=== PATIENT | female | born 1975 | race Caucasian/White ===

== ENCOUNTER → 2017-09-24 12:25 | Outpatient (CLI) | payer OTHER ==
[~2017-09-24] VITALS: Ht 152.4 cm; Wt 77.6 kg
[~2017-09-24 12:25] MED LIST: FIORICET 50-321 EACH PO; FLONASE16 GM NS; GILTUSS TR TAB1 EACH PO; MOTRIN800 MG PO; SEPTRA DS TABLE1 TAB PO; TIZANIDINE HCL2 MG PO; TOBREX5 ML OP; VASOTEC2.5 MG; VASOTEC2.5 MG PO; ZANAFLEX4 M1 PO; ZYRTEC10 MG PO
== END | disposition home or self-care (01) ==
LOC: PPHC 12:25
DX: J06.9 Acute upper respiratory infection, unspecified (principal)

== ENCOUNTER → 2017-09-27 08:43 | Outpatient (CLI) | payer OTHER | END | disposition home or self-care (01) | LOC: LAB 08:43 | DX: I10 Essential (primary) hypertension (principal) ==

== ENCOUNTER → 2017-10-02 10:50 | Outpatient (CLI) | payer OTHER ==
[~2017-10-02] VITALS: Ht 152.4 cm; Wt 75.7 kg
[~2017-10-02 10:50] MED LIST changes: +IMODIUM A-D2 M2 PO; +PEPCID40 MG PO
== END | disposition home or self-care (01) ==
LOC: PPHC 10:50
DX: E78.1 Pure hyperglyceridemia (principal); E07.89 Other specified disorders of thyroid

== ENCOUNTER 2017-10-07 18:35 | Emergency (ER) | payer OTHER ==
[~2017-10-07] VITALS: Ht 160 cm; Wt 75.7 kg
[~2017-10-07 18:35] MED LIST changes: -IMODIUM A-D2 M2 PO; -PEPCID40 MG PO
[2017-10-08] MEDS ORDERED: PEPCID40 MG PO (03:16)
[2017-10-08] MEDS ORDERED: IMODIUM A-D2 M2 PO ×3 (03:16→03:21)
== END 2017-10-08 03:52 | disposition home or self-care (01) ==
LOC: ER 18:35
DX: K52.9 Noninfective gastroenteritis and colitis, unspecified (principal)

== ENCOUNTER 2017-10-09 10:39 | Outpatient (CLI) | payer OTHER ==
[~2017-10-09 10:39] MED LIST changes: +IMODIUM A-D2 M2 PO; +PEPCID40 MG PO
== END 2017-10-09 10:42 | disposition home or self-care (01) ==
LOC: SONOGRAMA 10:39
DX: E04.8 Other specified nontoxic goiter (principal)

== ENCOUNTER 2017-12-13 10:15 | Outpatient (CLI) | payer OTHER | END 2017-12-13 10:22 | disposition home or self-care (01) | LOC: LAB 10:15 | DX: R50.9 Fever, unspecified (principal) ==

== ENCOUNTER → 2017-12-13 | Outpatient (CLI) | payer OTHER | END | disposition home or self-care (01) | LOC: PPHC 08:39 | DX: Z76.0 Encounter for issue of repeat prescription (principal); B34.9 Viral infection, unspecified ==

== ENCOUNTER 2018-02-07 08:18 | Outpatient (CLI) | payer OTHER | END 2018-02-07 08:24 | disposition home or self-care (01) | LOC: LAB 08:18 | DX: E03.8 Other specified hypothyroidism (principal); E89.0 Postprocedural hypothyroidism ==

== ENCOUNTER 2018-03-18 08:07 | Outpatient (CLI) | payer OTHER | END 2018-03-18 08:10 | disposition home or self-care (01) | LOC: MAMO-SONO 08:07 | DX: Z12.31 Encounter for screening mammogram for malignant neoplasm of breast (principal) ==

== ENCOUNTER 2018-04-18 08:35 | Outpatient (CLI) | payer OTHER | END 2018-04-18 08:42 | disposition home or self-care (01) | LOC: LAB 08:35 | DX: E03.8 Other specified hypothyroidism (principal) ==

== ENCOUNTER 2018-07-25 08:58 | Outpatient (CLI) | payer OTHER | END 2018-07-25 09:07 | disposition home or self-care (01) | LOC: LAB 08:58 | DX: G62.89 Other specified polyneuropathies (principal); R20.2 Paresthesia of skin; E03.8 Other specified hypothyroidism; E11.9 Type 2 diabetes mellitus without complications ==

== ENCOUNTER 2018-10-08 12:07 | Outpatient (CLI) | payer OTHER | END 2018-10-08 20:41 | disposition home or self-care (01) | LOC: LAB 12:07 | DX: J11.1 Influenza due to unidentified influenza virus with other respiratory manifestations (principal); J06.9 Acute upper respiratory infection, unspecified ==

== ENCOUNTER 2018-10-17 09:15 | Outpatient (CLI) | payer OTHER | END 2018-10-17 09:46 | disposition home or self-care (01) | LOC: LAB 09:15 | DX: G43.009 Migraine without aura, not intractable, without status migrainosus (principal); R51 Headache ==

== ENCOUNTER 2018-12-17 07:24 | Outpatient (CLI) | payer OTHER | END 2018-12-17 07:44 | disposition home or self-care (01) | LOC: LAB 07:24 | DX: E03.8 Other specified hypothyroidism (principal); R51 Headache; Z51.81 Encounter for therapeutic drug level monitoring ==

== ENCOUNTER 2018-12-17 11:08 | Outpatient (CLI) | payer OTHER | END 2018-12-17 16:18 | disposition home or self-care (01) | LOC: MRI 11:08 | DX: R51 Headache (principal) | CPT/HCPCS: 70553 ==

== ENCOUNTER 2019-01-14 11:12 | Outpatient (CLI) | payer OTHER | END 2019-01-14 13:03 | disposition home or self-care (01) | LOC: SONOGRAMA 11:12 | DX: E04.8 Other specified nontoxic goiter (principal) ==

== ENCOUNTER 2019-05-12 10:30 | Outpatient (CLI) | payer OTHER | END 2019-05-12 10:35 | disposition home or self-care (01) | LOC: LAB 10:30 | DX: A49.3 Mycoplasma infection, unspecified site (principal) ==

== ENCOUNTER 2019-11-03 12:27 | Emergency (ER) | payer OTHER ==
[~2019-11-03] VITALS: Ht 162.6 cm; Wt 81.6 kg
[2019-11-03] MEDS ORDERED: LEVOTHYROXINE25 MCG PO (13:06)
== END 2019-11-03 14:10 | disposition home or self-care (01) ==
LOC: ER 12:27
DX: S61.240A Puncture wound with foreign body of right index finger without damage to nail, initial encounter (principal); W46.0XXA Contact with hypodermic needle, initial encounter; Y93.89 Activity, other specified; Y92.69 Other specified industrial and construction area as the place of occurrence of the external cause; Y99.8 Other external cause status

== ENCOUNTER 2019-11-05 14:19 | Outpatient (CLI) | payer OTHER ==
[~2019-11-05 14:19] MED LIST changes: +LEVOTHYROXINE25 MCG PO
== END 2019-11-05 14:23 | disposition home or self-care (01) ==
LOC: LAB 14:19
DX: J11.1 Influenza due to unidentified influenza virus with other respiratory manifestations (principal); J06.9 Acute upper respiratory infection, unspecified

== ENCOUNTER 2019-11-10 06:23 | Outpatient (CLI) | payer OTHER | END 2019-11-10 06:31 | disposition home or self-care (01) | LOC: LAB 06:23 | DX: J06.9 Acute upper respiratory infection, unspecified (principal) ==

== ENCOUNTER 2019-12-23 06:23 | Outpatient (CLI) | payer OTHER | END 2019-12-23 15:00 | disposition home or self-care (01) | LOC: LAB 06:23 | DX: R10.84 Generalized abdominal pain (principal); Z00.00 Encounter for general adult medical examination without abnormal findings; R42 Dizziness and giddiness; I10 Essential (primary) hypertension; E03.8 Other specified hypothyroidism; E55.9 Vitamin D deficiency, unspecified; E78.49 Other hyperlipidemia ==

== ENCOUNTER → 2020-07-28 06:23 | Outpatient (CLI) | payer OTHER | END | disposition home or self-care (01) | LOC: LAB 06:23 | PROVIDERS: ATTEND Internal Medicine Endocrinology, Diabetes & Metabolism | DX: E06.3 Autoimmune thyroiditis (principal) ==

== ENCOUNTER 2020-08-14 15:03 | Outpatient (CLI) | payer OTHER | END 2020-08-14 15:10 | disposition home or self-care (01) | LOC: SONOGRAMA 15:03 | PROVIDERS: ATTEND Internal Medicine Endocrinology, Diabetes & Metabolism | DX: E04.2 Nontoxic multinodular goiter (principal) ==

== ENCOUNTER 2020-09-05 06:04 | Outpatient (CLI) | payer OTHER | END 2020-09-05 06:59 | disposition home or self-care (01) | LOC: LAB 06:04 | DX: E03.8 Other specified hypothyroidism (principal); E66.3 Overweight; E07.89 Other specified disorders of thyroid; I10 Essential (primary) hypertension; R07.89 Other chest pain; E78.49 Other hyperlipidemia; D64.89 Other specified anemias; N39.0 Urinary tract infection, site not specified; R10.84 Generalized abdominal pain; E11.9 Type 2 diabetes mellitus without complications ==

== ENCOUNTER 2020-09-05 07:29 | Outpatient (CLI) | payer OTHER | END 2020-09-05 07:49 | disposition home or self-care (01) | LOC: NUCLEAR 07:29 | PROVIDERS: ATTEND Internal Medicine | DX: I20.8 Other forms of angina pectoris (principal) | CPT/HCPCS: 93306; 78452; 93017; A9500 ==

== ENCOUNTER → 2020-11-14 06:11 | Outpatient (CLI) | payer OTHER | END | disposition home or self-care (01) | LOC: LAB 11-13 12:29 | PROVIDERS: ATTEND Internal Medicine | DX: R07.89 Other chest pain (principal); E66.3 Overweight; E78.49 Other hyperlipidemia; E07.89 Other specified disorders of thyroid; I10 Essential (primary) hypertension ==

== ENCOUNTER 2020-11-30 07:10 | Outpatient (CLI) | payer OTHER | END 2020-11-30 07:11 | disposition home or self-care (01) | LOC: NUCLEAR 07:10 | PROVIDERS: ATTEND Internal Medicine | DX: R09.89 Other specified symptoms and signs involving the circulatory and respiratory systems (principal) ==

== ENCOUNTER 2021-01-16 06:16 | Outpatient (CLI) | payer OTHER | END 2021-01-16 06:18 | disposition home or self-care (01) | LOC: LAB 06:16 | PROVIDERS: ATTEND Internal Medicine | DX: D64.9 Anemia, unspecified (principal); E78.5 Hyperlipidemia, unspecified ==

== ENCOUNTER 2021-07-20 14:32 | Outpatient (CLI) | payer OTHER | END 2021-07-20 14:33 | disposition home or self-care (01) | LOC: NUCLEAR 14:32 | PROVIDERS: ATTEND Internal Medicine | DX: I25.10 Atherosclerotic heart disease of native coronary artery without angina pectoris (principal) ==

== ENCOUNTER → 2021-07-21 07:17 | Outpatient (CLI) | payer OTHER | END | disposition home or self-care (01) | LOC: EDBD → LAB | PROVIDERS: ATTEND Internal Medicine | DX: D64.89 Other specified anemias (principal); E78.49 Other hyperlipidemia; R73.09 Other abnormal glucose ==

== ENCOUNTER → 2021-08-21 | Outpatient (CLI) | payer OTHER | END | disposition home or self-care (01) | LOC: PPH VACUNA 07:00 | PROVIDERS: ATTEND Emergency Medicine Pediatric Emergency Medicine | DX: Z23 Encounter for immunization (principal) ==